=== PATIENT | male | born 1995 | race Two or more races ===

== ENCOUNTER 2021-06-12 11:26 | Outpatient (CLI) | payer OTHER | END 2021-06-12 23:59 | disposition home or self-care (01) | LOC: CFH 11:26 → EDSTATUS 11:30 → CFH 23:59 | PROVIDERS: ATTEND Nurse Practitioner | DX: R19.7 Diarrhea, unspecified (principal); R10.11 Right upper quadrant pain; R10.13 Epigastric pain | CPT/HCPCS: 76700 ==